=== PATIENT | male | born 1955 | race African-American/Black ===

== ENCOUNTER 2018-07-25 05:04 | Inpatient (IN) | payer MEDICARE, OTHER ==
[~2018-07-25] VITALS: Ht 177.8 cm; Wt 99.8 kg
[2018-07-25] MEDS ORDERED: ONDANSETRON HCL 4MG/2ML INJ IV STA (06:28)
[2018-07-25 06:59] LABS: INR 1.3; PARTIAL THROMBOPLASTIN TIME 25.6 sec (23.4-31.0)
[2018-07-25 07:00] LABS: HEMATOCRIT. 23.2 % (42.0-52.0); HEMOGLOBIN. 7.6 g/dL (14.0-18.0); MEAN CORPUSCULAR VOLUME 94.2 fL (80.0-94.0); MEAN PLATELET VOLUME 8.1 fl (7.4-10.4); PLATELET 192 x1000/uL (130-400); RED BLOOD CELL COUNT 2.47 mill/uL (4.7-6.1)
[2018-07-25 07:01] LABS: CHLORIDE 106 mEq/L (98-107)
[2018-07-25 07:36] LABS: PLATELET ESTIMATE NORMAL
[2018-07-25] MEDS ORDERED: SODIUM BICARBONATE 8.4% 1 MEQ/ML 50ML SYR IV ONE (08:00)
[2018-07-25] MEDS ORDERED: DEXTROSE 50% WATER 50ML SYRINGE IV ONE (08:00)
[2018-07-25] MEDS ORDERED: CALCIUM CHLORIDE 1GM/10ML SYR IV ONE (08:00)
[2018-07-25] MEDS ORDERED: INSULIN REGULAR (HUMULIN R) 300UNITS/3ML IV ONE (08:00)
[2018-07-25] MEDS ORDERED: SODIUM POLYSTYRENE SULFONATE 15 G/60 ML BOT PO ONE ×2 (08:00→11:45)
[2018-07-25] MEDS ORDERED: LORAZEPAM 2MG/ML CPJ IV ONE (08:15)
[2018-07-25] MEDS ORDERED: ONDANSETRON HCL 4MG/2ML INJ IV PRN (11:45)
[2018-07-25] MEDS ORDERED: NA PHOS,M-B/NA PHOS,DI-BA ENEMA 118ML PR PRN (11:45)
[2018-07-25] MEDS ORDERED: DOCUSATE SODIUM 100MG CAPSULE PO PRN (11:45)
[2018-07-25] MEDS ORDERED: CLONIDINE 0.1MG TABLET PO PRN (11:45)
[2018-07-25] MEDS ORDERED: HYDROCODONE/ACETAMINOPHEN 5/325MG TABLET PO PRN (11:45)
[2018-07-25] MEDS ORDERED: MAGNESIUM/ALUMINUM HYDROXIDE/SIMETHICONE 30ML UDC PO PRN (11:45)
[2018-07-25] MEDS ORDERED: HYDROCODONE/ACETAMINOPHEN 10/325MG TABLET PO PRN (11:45)
[2018-07-25] MEDS ORDERED: ACETAMINOPHEN 650MG SUPP PR PRN (11:45)
[2018-07-25] MEDS ORDERED: GUAIFENESIN 200MG/10ML SUGAR FREE UDC PO PRN (11:45)
[2018-07-25] MEDS ORDERED: ACETAMINOPHEN 650MG/20.3ML UDC GT PRN (11:45)
[2018-07-25] MEDS ORDERED: IPRATROPIUM/ALBUTEROL 0.5-3(2.5)MG/3ML NEB INH PRN (11:45)
[2018-07-25] MEDS ORDERED: ACETAMINOPHEN 325MG TABLET PO PRN (11:45)
[2018-07-25] MEDS ORDERED: DIPHENHYDRAMINE 50MG/ML VIAL IV PRN (11:45)
[2018-07-25 13:23] LABS: HEMATOCRIT 24.9 % (42.0-52.0); HEMOGLOBIN 8.3 g/dL (14.0-18.0)
[2018-07-26 02:08] VITALS: BP 152/93
[2018-07-26] MEDS ORDERED: LACTULOSE 20G/30ML UDC PO SCH (02:27)
[2018-07-26 04:00] VITALS: BP 117/67
[2018-07-26] MEDS ORDERED: SODIUM CHLORIDE 0.9% INJ 3ML FLUSH IVF SCH (06:00)
[2018-07-26 08:00] VITALS: BP 138/84
[2018-07-26 10:03] LABS: BASOPHILS % 0.8 % (0.0-2.0); LYMPHOCYTES % 12.7 % (20.0-50.0); MEAN CORPUSCULAR HEMOGLOBIN 32.3 pg (28.0-32.0); MEAN CORPUSCULAR VOLUME 91.7 fL (80.0-94.0); MEAN PLATELET VOLUME 8.3 fl (7.4-10.4); MONOCYTES % 8.8 % (2.0-8.0); NEUTROPHILS % 76.7 % (40.0-76.0); PLATELET 135 x1000/uL (130-400); RED BLOOD CELL COUNT 2.02 mill/uL (4.7-6.1); RED CELL DISTRIBUTION WIDTH 17.5 % (11.6-14.6)
[2018-07-26 10:13] LABS: CHLORIDE 105 mEq/L (98-107)
[2018-07-26 10:30] LABS: LDL CHOLESTEROL 78 mg/dL (5-100)
[2018-07-26 10:33] LABS: HDL CHOLESTEROL 34 mg/dL (40-59); HEMATOCRIT. 18.5 % (42.0-52.0); HEMOGLOBIN. 6.5 g/dL (14.0-18.0)
== END 2018-07-26 13:15 | disposition left against medical advice (07) | DRG 314 ==
LOC: ER 05:20 → EDBEDREQ 07:32 → EDBEDREQSVC 07:32 → EDBEDREQ 07:47 → 8WST 09:09 → EDBEDREQSVC 20:45 → EDBEDREQTM 20:45 → ENRESERV 21:23
PROVIDERS: ADMIT Family Medicine; ATTEND Family Medicine
PROC: 5A1D70Z Performance of Urinary Filtration, Intermittent, Less than 6 Hours Per Day (ICD-10-PCS; principal; 2018-07-26)
DX: T82.838A Hemorrhage due to vascular prosthetic devices, implants and grafts, initial encounter (principal); N18.6 End stage renal disease; I13.2 Hypertensive heart and chronic kidney disease with heart failure and with stage 5 chronic kidney disease, or end stage renal disease; D62 Acute posthemorrhagic anemia; Y84.1 Kidney dialysis as the cause of abnormal reaction of the patient, or of later complication, without mention of misadventure at the time of the procedure; E87.5 Hyperkalemia; I50.9 Heart failure, unspecified; Z99.2 Dependence on renal dialysis; Y92.89 Other specified places as the place of occurrence of the external cause; Z79.899 Other long term (current) drug therapy; Z88.8 Allergy status to other drugs, medicaments and biological substances
CPT/HCPCS: 36415; 71045; 80061; 82962; 84132; 84484; 85014; 85018; 86850; 86900; 86920; 93005; 93922; 96374; 96375; 99291; J1815; J2060; J2405; J3490; P9021